=== PATIENT | male | born 1990 | race Caucasian/White ===

== ENCOUNTER 2017-07-12 19:10 | Emergency (ER) | payer MEDICAID | END 2017-07-12 23:40 | disposition home or self-care (01) | LOC: D.ER 19:10 | DX: R42 Dizziness and giddiness (principal); R09.89 Other specified symptoms and signs involving the circulatory and respiratory systems; F17.200 Nicotine dependence, unspecified, uncomplicated ==

== ENCOUNTER 2018-08-22 10:10 | Emergency (ER) | payer SELFPAY ==
[~2018-08-22] VITALS: Ht 165.1 cm; Wt 81.4 kg
[2018-08-22 10:15] VITALS: BP 151/104; Ht 165.1 cm; Wt 81.4 kg
[2018-08-22] MEDS ORDERED: TAMIFLU75 MG PO (11:07)
[2018-08-22] MEDS ORDERED: PHENERGAN DM SYR5 ML PO (11:08)
[2018-08-22] MEDS ORDERED: ALBUTEROL SULF8.5 GM INH (11:08)
== END 2018-08-22 11:20 | disposition home or self-care (01) ==
LOC: D.ER 10:10
DX: J11.1 Influenza due to unidentified influenza virus with other respiratory manifestations (principal); R05 Cough; M79.18 Myalgia, other site